=== PATIENT | female | born 1935 | race African-American/Black ===

== ENCOUNTER → 2017-03-10 | Outpatient (CLI) | payer MEDICARE, MEDICAID | END | disposition home or self-care (01) | LOC: NM 08:20 | PROVIDERS: ATTEND Student in an Organized Health Care Education/Training Program | DX: T84.84XA Pain due to internal orthopedic prosthetic devices, implants and grafts, initial encounter (principal) | CPT/HCPCS: 78315; A9503 ==

== ENCOUNTER 2017-08-12 06:33 | Inpatient (IN) | payer MEDICARE, MEDICAID ==
[~2017-08-12] VITALS: Ht 172.7 cm; Wt 80.3 kg
[2017-08-12] MEDS ORDERED: DEXTROSE 50% WATER 50ML SYRINGE IV ONE ×3 (07:09→09:45)
[2017-08-12 08:50] LABS: BASOPHILS % 0.5 % (0.0-2.0); EOSINOPHILS % 1.4 % (0.0-5.0); HEMOGLOBIN. 13.3 g/dL (12.0-16.0); LYMPHOCYTES % 13.1 % (20.0-50.0); MEAN CORPUSCULAR HEMOGLOBIN 29.1 pg (28.0-32.0); MEAN CORPUSCULAR VOLUME 87.4 fL (81.0-99.0); MEAN PLATELET VOLUME 8.7 fl (7.4-10.4); MONOCYTES % 7.3 % (2.0-8.0); NEUTROPHILS % 77.7 % (40.0-76.0); PLATELET 145 x1000/uL (130-400); RED BLOOD CELL COUNT 4.58 mill/uL (4.2-5.4); RED CELL DISTRIBUTION WIDTH 14.7 % (11.6-14.6)
[2017-08-12 09:31] LABS: CHLORIDE 109 mEq/L (98-107)
[2017-08-12 09:37] LABS: CARBON DIOXIDE 30 mEq/L (21-32)
[2017-08-12] MEDS ORDERED: DEXTROSE 10% WATER 250 ML IV ONE (09:45)
[2017-08-12] MEDS ORDERED: DEXTROSE 50% WATER 50ML SYRINGE IV PRN ×2 (10:30→21:00)
[2017-08-12] MEDS ORDERED: ONDANSETRON HCL 4MG/2ML VIAL IV PRN (10:30)
[2017-08-12] MEDS ORDERED: MAGNESIUM/ALUMINUM HYDROXIDE/SIMETHICONE 30ML UDC PO PRN (10:30)
[2017-08-12] MEDS ORDERED: LORAZEPAM 0.5MG TABLET PO PRN (10:30)
[2017-08-12] MEDS ORDERED: IPRATROPIUM/ALBUTEROL 0.5-3(2.5)MG/3ML NEB INH PRN (10:30)
[2017-08-12] MEDS ORDERED: DEXT 10%/0.45% NACL 1,000 ML IV SCH (10:45)
[2017-08-12] MEDS ORDERED: ZOLPIDEM TARTRATE 5MG TABLET PO PRN (10:45)
[2017-08-12] MEDS ORDERED: SODIUM CHLORIDE 23.4% 154 MEQ in DEXT 10% WATER 961.5 ML IV SCH (11:30)
[2017-08-12] MEDS: WATER IV SCH (11:38)
[2017-08-12] MEDS: DEXT 10% IV SCH (11:38)
[2017-08-12] MEDS: SODIUM CHLORIDE IV SCH (11:38)
[2017-08-12 12:00] VITALS: BP 143/80
[2017-08-12] MEDS ORDERED: CLOPIDOGREL 75MG TABLET PO NR (12:15)
[2017-08-12 13:30] VITALS: BP 143/87
[2017-08-12] MEDS ORDERED: LORAZEPAM 2MG/ML CPJ IV PRN (14:00)
[2017-08-12] MEDS ORDERED: ROSU20TA PO (14:02)
[2017-08-12] MEDS ORDERED: CARV25TA47 PO (14:02)
[2017-08-12] MEDS ORDERED: OMEP20CA10 PO (14:02)
[2017-08-12] MEDS ORDERED: SACU1TAB PO (14:02)
[2017-08-12] MEDS ORDERED: EMPA10TA PO (14:02)
[2017-08-12] MEDS ORDERED: PREG50CA PO (14:02)
[2017-08-12] MEDS ORDERED: ASPI-1159 PO (14:02)
[2017-08-12] MEDS ORDERED: CLOP75TA33 PO (14:02)
[2017-08-12] MEDS ORDERED: SITA100T11 PO (14:02)
[2017-08-12 16:00] VITALS: BP 143/89
[2017-08-12 18:39] LABS: CREATINE KINASE 242 IU/L (26-192); CREATINE KINASE MB FRACTION 3.1 ng/mL (0.5-3.6); TROPONIN I < 0.02 ng/mL (0.00-0.04)
[2017-08-12 20:00] VITALS: BP 116/68
[2017-08-12] MEDS: BLOOD SUGAR DIAGNOSTIC STRIP TEST SCH (21:00)
[2017-08-12] MEDS: ATORVASTATIN CALCIUM 10MG TABLET PO SCH (22:15)
[2017-08-13] VITALS (8 sets, daily range): BP systolic 117–146; BP diastolic 66–80
[2017-08-13 03:04] LABS: CREATINE KINASE 213 IU/L (26-192); CREATINE KINASE MB FRACTION 2.6 ng/mL (0.5-3.6); TROPONIN I < 0.02 ng/mL (0.00-0.04)
[2017-08-13] MEDS: SODIUM CHLORIDE IV SCH (06:09)
[2017-08-13] MEDS: WATER IV SCH (06:09)
[2017-08-13] MEDS: BLOOD SUGAR DIAGNOSTIC STRIP TEST SCH ×4 (06:09→21:00)
[2017-08-13] MEDS: DEXT 10% IV SCH (06:09)
[2017-08-13 07:29] LABS: GLUCOSE URINE 2+ (NEGATIVE); KETONES URINE NEGATIVE (NEGATIVE); LEUKOCYTE ESTERASE URINE NEGATIVE (NEGATIVE); NITRITE URINE NEGATIVE (NEGATIVE); OCCULT BLOOD URINE NEGATIVE (NEGATIVE); PROTEIN URINE NEGATIVE (NEGATIVE); SPECIFIC GRAVITY URINE 1.011 (1.005-1.030); UROBILINOGEN URINE 0.2 E.U./dL (0.2-1.0)
[2017-08-13 07:40] LABS: CLARITY URINE CLEAR (CLEAR); COLOR URINE PALE YELLOW (YELLOW)
[2017-08-13 07:51] LABS: BASOPHILS % 0.7 % (0.0-2.0); EOSINOPHILS % 3.2 % (0.0-5.0); HEMATOCRIT. 38.9 % (36.0-48.0); HEMOGLOBIN. 12.9 g/dL (12.0-16.0); LYMPHOCYTES % 23.6 % (20.0-50.0); MEAN CORPUSCULAR HEMOGLOBIN 29.1 pg (28.0-32.0); MEAN CORPUSCULAR VOLUME 87.8 fL (81.0-99.0); MEAN PLATELET VOLUME 9.2 fl (7.4-10.4); MONOCYTES % 10.9 % (2.0-8.0); NEUTROPHILS % 61.6 % (40.0-76.0); PLATELET 132 x1000/uL (130-400); RED BLOOD CELL COUNT 4.43 mill/uL (4.2-5.4); RED CELL DISTRIBUTION WIDTH 14.9 % (11.6-14.6)
[2017-08-13] MEDS: CLOPIDOGREL 75MG TABLET PO SCH (09:07)
[2017-08-13] MEDS: DOCUSATE SODIUM 250MG CAPSULE PO SCH (09:07)
[2017-08-13] MEDS: OMEPRAZOLE 20MG CAPSULE EXTENDED RELEASE PO SCH (12:44)
[2017-08-13] MEDS: ASPIRIN 81MG EC TABLET PO SCH (12:44)
[2017-08-13] MEDS: CARVEDILOL 25MG TABLET PO SCH ×2 (12:45→21:36)
[2017-08-13] MEDS: PREGABALIN 50 MG CAPSULE PO SCH (21:36)
[2017-08-13] MEDS: ATORVASTATIN CALCIUM 10MG TABLET PO SCH (21:36)
[2017-08-13] MEDS: ACETAMINOPHEN 325MG TABLET PO PRN (21:44)
[2017-08-13] MEDS: TEMAZEPAM 15MG CAPSULE PO PRN (23:47)
[2017-08-14] VITALS: BP 125/76
[2017-08-14 04:29] VITALS: BP 117/71
[2017-08-14] MEDS: BLOOD SUGAR DIAGNOSTIC STRIP TEST SCH ×4 (06:09→20:31)
[2017-08-14] MEDS: OMEPRAZOLE 20MG CAPSULE EXTENDED RELEASE PO SCH (06:10)
[2017-08-14 07:26] LABS: BASOPHILS % 0.9 % (0.0-2.0); EOSINOPHILS % 4.7 % (0.0-5.0); HEMATOCRIT. 35.7 % (36.0-48.0); HEMOGLOBIN. 11.9 g/dL (12.0-16.0); LYMPHOCYTES % 25.1 % (20.0-50.0); MEAN CORPUSCULAR HEMOGLOBIN 29.2 pg (28.0-32.0); MEAN CORPUSCULAR VOLUME 87.4 fL (81.0-99.0); MEAN PLATELET VOLUME 9.2 fl (7.4-10.4); MONOCYTES % 14.4 % (2.0-8.0); NEUTROPHILS % 54.9 % (40.0-76.0); PLATELET 125 x1000/uL (130-400); RED BLOOD CELL COUNT 4.08 mill/uL (4.2-5.4)
[2017-08-14 08:00] VITALS: BP 128/70
[2017-08-14] MEDS: CARVEDILOL 25MG TABLET PO SCH ×2 (08:27→20:25)
[2017-08-14] MEDS: DOCUSATE SODIUM 250MG CAPSULE PO SCH (08:27)
[2017-08-14] MEDS: ASPIRIN 81MG EC TABLET PO SCH (08:27)
[2017-08-14] MEDS: CLOPIDOGREL 75MG TABLET PO SCH (08:27)
[2017-08-14] MEDS ORDERED: CLOPIDOGREL 75MG TABLET PO SCH (09:00)
[2017-08-14] MEDS: ACETAMINOPHEN 325MG TABLET PO PRN ×2 (10:40→20:25)
[2017-08-14 12:00] VITALS: BP 139/84
[2017-08-14 16:00] VITALS: BP 148/75
[2017-08-14 20:10] VITALS: BP 138/82
[2017-08-14] MEDS: PREGABALIN 50 MG CAPSULE PO SCH (20:25)
[2017-08-14] MEDS: ATORVASTATIN CALCIUM 10MG TABLET PO SCH (20:25)
[2017-08-14] MEDS: TEMAZEPAM 15MG CAPSULE PO PRN (22:32)
[2017-08-15] VITALS: BP 120/71
[2017-08-15 04:00] VITALS: BP_SYST 118; BP_SYST 145; BP_DIAS 59; BP_DIAS 71
[2017-08-15] MEDS: BLOOD SUGAR DIAGNOSTIC STRIP TEST SCH ×2 (06:14→12:18)
[2017-08-15] MEDS ORDERED: FAMOTIDINE 20MG TABLET PO SCH (06:45)
[2017-08-15 07:28] LABS: EOSINOPHILS % 5.4 % (0.0-5.0); HEMATOCRIT. 38.6 % (36.0-48.0); HEMOGLOBIN. 12.7 g/dL (12.0-16.0); LYMPHOCYTES % 26.3 % (20.0-50.0); MEAN CORPUSCULAR HEMOGLOBIN 29.1 pg (28.0-32.0); MEAN CORPUSCULAR VOLUME 88.3 fL (81.0-99.0); MEAN PLATELET VOLUME 8.8 fl (7.4-10.4); MONOCYTES % 11.7 % (2.0-8.0); NEUTROPHILS % 55.6 % (40.0-76.0); PLATELET 145 x1000/uL (130-400); RED BLOOD CELL COUNT 4.37 mill/uL (4.2-5.4); RED CELL DISTRIBUTION WIDTH 14.9 % (11.6-14.6)
[2017-08-15 08:00] VITALS: BP 144/82
[2017-08-15] MEDS: ASPIRIN 81MG EC TABLET PO SCH (10:16)
[2017-08-15] MEDS: DOCUSATE SODIUM 250MG CAPSULE PO SCH (10:16)
[2017-08-15] MEDS: CLOPIDOGREL 75MG TABLET PO SCH (10:17)
[2017-08-15] MEDS: CARVEDILOL 25MG TABLET PO SCH (10:17)
[2017-08-15 12:00] VITALS: BP 140/82
[2017-08-15 12:52] VITALS: BP 140/82
== END 2017-08-15 13:47 | disposition home or self-care (01) | DRG 639 ==
LOC: ER 06:33 → 5WST 08:57 → ENRESERV 10:40 → 5WST 08-15 06:41
PROVIDERS: ADMIT Internal Medicine Geriatric Medicine; ATTEND Internal Medicine Geriatric Medicine
DX: E11.649 Type 2 diabetes mellitus with hypoglycemia without coma (principal); E11.59 Type 2 diabetes mellitus with other circulatory complications; G90.8 Other disorders of autonomic nervous system; W18.39XA Other fall on same level, initial encounter; M48.02 Spinal stenosis, cervical region; I10 Essential (primary) hypertension; M54.12 Radiculopathy, cervical region; E78.00 Pure hypercholesterolemia, unspecified; E78.5 Hyperlipidemia, unspecified; F41.9 Anxiety disorder, unspecified; S00.83XA Contusion of other part of head, initial encounter; G47.00 Insomnia, unspecified; M19.90 Unspecified osteoarthritis, unspecified site; I25.10 Atherosclerotic heart disease of native coronary artery without angina pectoris; I25.2 Old myocardial infarction; Z86.711 Personal history of pulmonary embolism; Z86.718 Personal history of other venous thrombosis and embolism; Z86.73 Personal history of transient ischemic attack (TIA), and cerebral infarction without residual deficits; Z88.2 Allergy status to sulfonamides; Z95.1 Presence of aortocoronary bypass graft; Y93.89 Activity, other specified; Y92.89 Other specified places as the place of occurrence of the external cause
CPT/HCPCS: 36415; 70450; 70551; 73030; 80048; 80061; 81001; 82550; 82553; 82962; 83036; 84484; 85025; 87086; 93970; 96361; 96374; 96376; 97116; 97162; 99285; J2060; J7131

== ENCOUNTER → 2018-08-16 | Outpatient (CLI) | payer MEDICARE, MEDICAID ==
[~2018-08-16] MED LIST: ASPI-1159 PO; CARV25TA47 PO; CLOP75TA33 PO; EMPA10TA PO; OMEP20CA10 PO; PREG50CA PO; ROSU20TA PO; SACU1TAB PO; SITA100T11 PO
== END | disposition home or self-care (01) ==
LOC: US 12:32
PROVIDERS: ATTEND Internal Medicine Geriatric Medicine
DX: Z13.89 Encounter for screening for other disorder (principal); J16.8 Pneumonia due to other specified infectious organisms; I51.7 Cardiomegaly; I82.493 Acute embolism and thrombosis of other specified deep vein of lower extremity, bilateral
CPT/HCPCS: 71046; 93970

== ENCOUNTER 2019-03-28 08:24 | Day surgery (SDC) | payer MEDICARE, MEDICAID ==
[~2019-03-28] VITALS: Ht 172.7 cm; Wt 77.6 kg
[2019-03-28] MEDS ORDERED: APIX5TAB MT (09:20)
[2019-03-28] MEDS ORDERED: FURO40TA5 MT (09:20)
[2019-03-28] MEDS ORDERED: AMI2 MT (09:20)
[2019-03-28] MEDS ORDERED: ACETAMINOPHEN 325MG TABLET PO PRN ×2 (09:45→11:45)
[2019-03-28] MEDS ORDERED: NICARDIPINE 100MCG/ML 10ML VIAL (CATH LAB) IV ONE (10:00)
[2019-03-28] MEDS ORDERED: HEPARIN SODIUM 1,000 UNIT/1ML VIAL IV ONE (10:00)
[2019-03-28] MEDS ORDERED: NITROGLYCERIN 50MCG/ML 10ML VIAL (CATH LAB) IV ONE (10:00)
[2019-03-28] MEDS ORDERED: IODIXANOL 320MG/ML 100 ML BOTTLE IV ONE (10:11)
[2019-03-28] MEDS ORDERED: LIDOCAINE HCL 1% 20ML VIAL (Pyxis) INJ ONE (10:11)
[2019-03-28] MEDS ORDERED: MIDAZOLAM HCL 2 MG/2 ML VIAL ONE (10:26)
[2019-03-28] MEDS ORDERED: FENTANYL CITRATE/PF 50MCG/ML 2ML VIAL ONE (10:27)
[2019-03-28] MEDS ORDERED: DEXT 5%/0.45% NACL 1000ML 1,000 ML IV SCH (10:30)
[2019-03-28] MEDS ORDERED: ONDANSETRON HCL 4MG/2ML INJ IV PRN (11:45)
== END 2019-03-28 16:15 | disposition home or self-care (01) ==
LOC: CCL 08:24
PROVIDERS: ATTEND Specialist
DX: I25.118 Atherosclerotic heart disease of native coronary artery with other forms of angina pectoris (principal); T82.855A Stenosis of coronary artery stent, initial encounter; E78.00 Pure hypercholesterolemia, unspecified; E11.49 Type 2 diabetes mellitus with other diabetic neurological complication; M19.90 Unspecified osteoarthritis, unspecified site; M48.061 Spinal stenosis, lumbar region without neurogenic claudication; J44.9 Chronic obstructive pulmonary disease, unspecified; I25.2 Old myocardial infarction; I48.0 Paroxysmal atrial fibrillation; I45.10 Unspecified right bundle-branch block; I25.5 Ischemic cardiomyopathy; E78.5 Hyperlipidemia, unspecified; Z88.2 Allergy status to sulfonamides; Z88.8 Allergy status to other drugs, medicaments and biological substances; Z96.651 Presence of right artificial knee joint; Z79.899 Other long term (current) drug therapy; Z79.82 Long term (current) use of aspirin; Z86.73 Personal history of transient ischemic attack (TIA), and cerebral infarction without residual deficits; Z95.1 Presence of aortocoronary bypass graft; Z95.5 Presence of coronary angioplasty implant and graft; Z86.718 Personal history of other venous thrombosis and embolism; Z79.01 Long term (current) use of anticoagulants; Y83.9 Surgical procedure, unspecified as the cause of abnormal reaction of the patient, or of later complication, without mention of misadventure at the time of the procedure
CPT/HCPCS: 82962; 93459; 99152; 99153; C1769; C1887; C1893; J1644; J2250; J3010; J3490; Q9967; G0500